=== PATIENT | female | born 1955 | race Caucasian/White ===

== ENCOUNTER 2020-10-18 14:34 | Emergency (ER) | payer SELFPAY ==
[2020-10-18] VITALS (52 sets, daily range): BP systolic 93–128; BP diastolic 34–85; PULSE 72–102; RESP 12–45; TEMP 37.1; O2SAT 90–100
--- NOTE | ~2020-10-18 | CT_ITS ---
EXAMINATION: CT abdomen pelvis w con DATE: 10/18/2020 18:04 INDICATION: Abdominal pain, bloating and leukocytosis TECHNIQUE: Computed tomography (CT) of the abdomen and pelvis was performed with 100 mL Omnipaque-350 intravenous contrast. Automated exposure control and iterative reconstruction technique were employe d. The dose-length product was 946.05 mGy-cm. COMPARISON: None FINDINGS: Mild discoid atelectasis/scarring at the lingula. Calcified nodule at the lingula along with a few sp lenic calcifications consistent with old granulomatous disease. Heart size is normal. No pericardial or pleural effusion. Cirrhotic liver with nodular surface contour. There is suggestion of a subtle 3. 3 cm at the caudal tip of the right hepatic lobe with similar but subtly more heterogeneous enhanceme nt of the adjacent liver. Cholecystectomy clips at the gallbladder fossa. There is [id number] amount of fluid scattered throughout the abdomen and pelvis which is of greater than simple fluid att enuation with the hypoattenuation near the caudal tip of the liver. In proximity to the previously no balta mass suggesting possibility of hemoperitoneum. There is irregular peripheral contour to the mass but no definitive active contrast extravasation. Pancreas, bilateral adrenal glands and left kidney a re normal. 9 mm right renal cyst. Small high density nodular focus near the tip of the cecum which co uld represent a diverticulum or small appendiceal stump. Mild diffuse fatty infiltration of the wall of the colon likely related to body habitus. No bowel obstruction. Uterus, partially decompressed jordon dder and bilateral adnexa are unremarkable. No jasmin peroneal gas. No pathologically enlarged abdomin al or pelvic lymphadenopathy. Severe spondylosis at the lumbosacral and thoracolumbar junction as wel l as in the visualized lower thoracic spine. Chronic appearing mild anterior wedging at L1. Bilateral L5 pars in particular is defects with 6 mm anterolisthesis on S1. Severe right and moderate left hip osteoarthritis. IMPRESSION: 1. Cirrhosis with small to moderate amount of relatively high attenuation ascites with density greate st along the liver suspicious for hemoperitoneum potentially related to extravasation from a 3.3 inde terminate mass at the periphery the caudal tip of the right hepatic lobe. Differential for the comple x ascites would include peritonitis. The liver lesion could be either benign or malignant and would r ecommend follow-up pre and postcontrast MRI for evaluation of the liver lesion when clinically approp riate. 2. Cirrhosis. Reviewed, dictated and finalized at location H. ITIES MANAGER IMPRESSION: 1. Cirrhosis with small to moderate amount of relatively high attenuation ascit es with density greatest along the liver suspicious for hemoperitoneum potentia lly related to extravasation from a 3.3 indeterminate mass at the periphery the caudal tip of the right hepatic lobe. Differential for the complex ascites wou ld include peritonitis. The liver lesion could be either benign or malignant an d would recommend follow-up pre and postcontrast MRI for evaluation of the live r lesion when clinically appropriate. 2. Cirrhosis.
--- NOTE | ~2020-10-18 | XR_ITS ---
EXAMINATION: XR chest 1V DATE: 10/18/2020 17:43 INDICATION: Cough and shortness of breath. Weakness. TECHNIQUE: frontal view of the chest was obtained. COMPARISON: None FINDINGS: Focal small opacity at the left costophrenic angle likely atelectasis/scarring at the lingula. Right lung is clear. No pulmonary edema, pleural effusion or pneumothorax. The cardiomediastinal silhouette is normal. Mild to moderate degenerative skeletal changes in the visualized spine and bilateral shou lders. IMPRESSION: 1. Mild lingular atelectasis/scarring. Reviewed, dictated and finalized at location H. US ADMINISTRATIVE ASSISTANT
[2020-10-18 16:01] LABS: Basophils Absolute Auto 0.1 K/mm3 (0.0-0.1); Basophils Percent Auto 0.2 % (0.2-1.2); Hematocrit 35.9 % (37.0-47.0); Immature Granulocyte Absolute 0.15 K/mm3 (0.00-0.031); Immature Granulocyte Percent A 0.7 % (0-0.5); Lymphocytes Absolute Auto 1.53 K/mm3 (0.9-3.2); Lymphocytes Percent Auto 7.2 % (18.3-44.2); Mean Corpuscular HGB Conc 33.4 g/dl (32-36); Mean Corpuscular Hemoglobin 31.3 pg (26-34); Mean Corpuscular Volume 93.5 fl (80-100); Mean Platelet Volume 11.6 fl (7.4-10.4); Monocytes Absolute Auto 0.8 K/mm3 (0.1-0.6); Monocytes Percent Auto 3.6 % (2.6-8.5); Neutrophils Absolute Auto 18.9 K/mm3 (1.3-6.7); Neutrophils Percent Auto 88.3 % (45.5-73.1); Platelet Count Result 205 k/mm3 (150-375); Red Blood Count 3.84 M/mm3 (4.2-5.4); Red Cell Distribution Width 13.4 % (11.5-14.5); White Blood Count 21.4 K/mm3 (4.5-10.0)
[2020-10-18 16:13] LABS: Alanine Aminotransferase 24 U/L (4-35); Albumin Level 3.8 g/dL (3.5-5.1); Alkaline Phosphatase 84 U/L (38-126); Anion Gap 9 mmol/L (8-16); Aspartate Amino Transferase 28 U/L (14-36); Bilirubin,Total 0.5 mg/dL (0.2-1.3); Blood Urea Nitrogen 17 mg/dL (7-17); Calcium 9.2 mg/dL (8.4-10.2); Carbon Dioxide 24 mmol/L (22-30); Chloride 102 mmol/L (98-107); Estimated CRCL calculation 57 ml/min; Estimated Glomerular Filt Rate > 60; Glucose 167 mg/dL (65-105); Lipase 79 U/L (23-300); Potassium 4.4 mmol/L (3.4-5.0); Sodium 135 mmol/L (137-145)
[2020-10-18 17:28] LABS: Add Urine Microscopic? YES; Appearance Urine Clear (Clear); Bacteria Urine Trace /hpf; Bilirubin Urine Negative (Negative); Blood Urine Negative (Negative); Color Urine Red (Yellow); Glucose Urine UA Negative (Negative); Ketones Urine Negative (Negative); Leukocyte Esterase Ur Negative LEU/UL (Negative); Mucus Urine Heavy /lpf; Nitrate Urine Positive (Negative); Protein Urine 3+ mg/dL (Negative); Specific Grav Ur 1.022 (1.001-1.035); Squamous Epithelial Cell Urine Many /hpf (Few); WBC Urine 0-3 /hpf
[2020-10-18] MEDS: SODIUM CHLORIDE 0.9% IV 1,000 ML 999 ML IV CONT (17:47)
[2020-10-18] MEDS: ONDANSETRON INJ 4 MG/2 ML VIAL IV PUSH (17:47)
--- NOTE | 2020-10-18 17:50 | PC.NURSE ---
martin valladares. have IVF at bedside. patient to CT. will start IVF when patient returns.
--- NOTE | 2020-10-18 18:09 | ED.GENADULT ---
HPI - General Adult General Chief complaint: Nausea/Vomiting/Diarrhea <Hope Hernandez PA-C - Last Filed: 10/18/20 21:36> Stated complaint: n/v/d, body aches <Hope Hernandez PA-C - Last Filed: 10/18/20 21:36> Time Seen by Provider: 10/18/20 16:46 <SOLA Mraquez Last Filed: 10/18/20 21:36> Source: patient <Hope Hernandez PA-C - Last Filed: 10/18/20 21:36> Mode of arrival: ambulatory <SOLA Marquez Last Filed: 10/18/20 21:36> Limitations: no limitations <Hope Hernandez PA-C - Last Filed: 10/18/20 21:36> History of Present Illness HPI narrative: Patient presents with chief complaint of nausea, body aches, 2 episodes of vomiting, and lower abdominal pain that began upon awakening this morning. Patient states that she felt the need to urinate but felt as if she cannot and so she took Azo and drink some cranberry juice and put on a diaper then she was able to urinate. Patient states that she has felt chills but has not documented a fever. Patient states she has a chronic cough due to COPD but she has not noticed any worsening cough or shortness of breath. Patient states that she does not have any known contact with a Covid positive person. Patient states at this time she no longer feels that she is retaining urine however she still has a lot of pressure to her lower abdomen with discomfort. <Hope Hernandez PA-C - Last Filed: 10/18/20 21:36> Related Data Allergies/adverse reactions: Allergies Allergy/AdvReac Type Severity Reaction Status Date / Time codeine Allergy Dyspnea / Verified 10/18/20 17:11 SOB <Hope Hernandez PA-C - Last Filed: 10/18/20 21:36> Review of Systems Review of Systems: Narrative: CONSTITUTIONAL: Reports chills denies feveror sweats. EYES: Denies visual changes, redness, or discharge. ENT: Reports dry throat denies rhinorrhea, congestion or otalgia. CARDIOVASCULAR: Denies chest pain, palpitations, or edema. RESPIRATORY: Denies acute cough or dyspnea. GASTROINTESTINAL: Reports abdominal pain, nausea, vomiting X2 GENITOURINARY: Reports dysuria SKIN: Denies rash or itching. MUSCULOSKELETAL: Denies back pain, joint pain, or myalgia. NEUROLOGIC: Denies headache, numbness, dizziness, or weakness. PSYCHIATRIC: Denies anxiety or depression. <Hope Hernandez PA-C - Last Filed: 10/18/20 21:36> [facility] Past Medical History Medical History: Medical History (Updated 10/19/20 @ 13:08 by Charli Varner DO) COPD (chronic obstructive pulmonary disease) <Hope Hernandez PA-C - Last Filed: 10/18/20 21:36> Exam Narrative: Exam Narrative: GENERAL: Well-appearing, well-nourished, and in no acute distress. HEAD: Normocephalic, atraumatic. EYES: PERRLA and EOMI. NECK: Supple. No adenopathy or masses. CHEST: Clear to auscultation. No respiratory distress. faint expiratory wheezes at bases, no rales or rhonchi HEART: Regular rate and rhythm. ABDOMEN: Soft, tender to lower abdomen, possible mild distention but difficult to tell with patient body habitus, normal active bowel sounds. EXTREMITIES: Normal range of motion. No edema. SKIN: Warm, dry, no rash. NEURO: No focal deficits. Alert and oriented x3. PSYCH: Normal mood and affect. <Hope Hernandez PA-C - Last Filed: 10/18/20 21:36> Course Course Emergency Course: Care turned over to myself at shift change by Dr. Mcdermott awaiting transfer to [facility]. Patient has had a hepatic mass with some questionable hemorrhage I will recheck hemoglobin at this time Hemoglobin rechecked which shows a drop I called [facility] and Saunemin checked and patient does have a bed at this time will transfer Still awaiting EMS transport was called and I discussed with surgery resident [facility] reviewed recheck a repeat hemoglobin Patient's repeat hemoglobin was called [facility] patient currently with EMS transporting the patient to [facility] at this time surgery will follo
--- NOTE | 2020-10-18 22:07 | PC.NURSE ---
accepted by [facility] at this time. .
[2020-10-19] VITALS (51 sets, daily range): BP systolic 92–113; BP diastolic 49–68; PULSE 71–83; RESP 14–26; TEMP 36.6; O2SAT 84–99
[2020-10-19] MEDS: SODIUM CHLORIDE 0.9% IV 1,000 ML 150 ML IV CONT (06:04)
--- NOTE | 2020-10-19 06:58 | PC.NURSE ---
i called [facility] to touch base about a bed. i was told that they have no beds at the moment and when a bed does come up they will call and let us know.
[2020-10-19 08:54] LABS: Basophils Absolute Auto 0.1 K/mm3 (0.0-0.1); Basophils Percent Auto 0.4 % (0.2-1.2); Eosinophils Percent Auto 0.1 % (0-4.4); Hematocrit 28.1 % (37.0-47.0); Hemoglobin 9.4 g/dL (12.0-15.0); Immature Granulocyte Absolute 0.05 K/mm3 (0.00-0.031); Immature Granulocyte Percent A 0.4 % (0-0.5); Lymphocytes Absolute Auto 2.86 K/mm3 (0.9-3.2); Lymphocytes Percent Auto 21.2 % (18.3-44.2); Mean Corpuscular HGB Conc 33.5 g/dl (32-36); Mean Corpuscular Hemoglobin 31.4 pg (26-34); Mean Platelet Volume 11.7 fl (7.4-10.4); Monocytes Absolute Auto 0.9 K/mm3 (0.1-0.6); Monocytes Percent Auto 6.8 % (2.6-8.5); Neutrophils Absolute Auto 9.6 K/mm3 (1.3-6.7); Neutrophils Percent Auto 71.1 % (45.5-73.1); Platelet Count Result 163 k/mm3 (150-375); Red Blood Count 2.99 M/mm3 (4.2-5.4); Red Cell Distribution Width 13.6 % (11.5-14.5); White Blood Count 13.5 K/mm3 (4.5-10.0)
--- NOTE | 2020-10-19 11:13 | PC.NURSE ---
received report from Radha FLORES. patient is waiting for EMS to transfer to [place]. no change in condition.
--- NOTE | 2020-10-19 12:35 | PC.NURSE ---
patient updated on EMS time. will be here now around 1pm. sitting in her room talking to her daughter. wants to smoke. aware of ED policy. refuses nicotine patch.
[2020-10-19 12:51] LABS: Hematocrit 26.2 % (37.0-47.0); Hemoglobin 8.7 g/dL (12.0-15.0)
--- NOTE | 2020-10-19 12:55 | PC.NURSE ---
[facility] here. patient released to their care for transfer to [place].
[2020-10-19 14:03] LABS: SARS-CoV-2 RNA PCR Negative
== END 2020-10-19 12:56 | disposition short-term general hospital (02) ==
PROVIDERS: Emergency Medicine; Physician Assistant; Emergency Provider Emergency Medicine
DX: K74.60 Unspecified cirrhosis of liver (principal); R16.0 Hepatomegaly, not elsewhere classified; K66.1 Hemoperitoneum; Z20.828 Contact with and (suspected) exposure to other viral communicable diseases; J44.9 Chronic obstructive pulmonary disease, unspecified
CPT/HCPCS: 36415; 71045; 74177; 80053; 81001; 83690; 85014; 85018; 85025; 86850; 86900; 86901; 87635; 87804; 96361; 96365; 96375; 99285; C9803; J0696; J2405; J7030; Q9967; U0003

== ENCOUNTER 2022-05-23 13:13 | Observation (INO) | payer OTHER, SELFPAY ==
[2022-05-23] VITALS (10 sets, daily range): BP systolic 125–168; BP diastolic 52–86; PULSE 80–98; RESP 16–20; TEMP 36.6–37.2; O2SAT 88–96
--- NOTE | ~2022-05-23 | XR_ITS ---
EXAMINATION: XR chest 1V portable Exam Date/Time: 05/23/2022 14:20 CDT HISTORY: cough, sore throat, fever x3 days, hx: copd Comparison: 10/18/2020. RESULT: Lines, tubes, and devices: None. Lungs and pleura: Right basilar scar/atelectasis, otherwise clear. Cardiomediastinal silhouette: Stable cardiomediastinal silhouette. Other: No acute osseous or upper abdominal finding. IMPRESSION: No acute cardiopulmonary process. Reviewed, dictated and finalized at location K.
[2022-05-23 15:23] LABS: SARS-CoV-2 RNA PCR Negative
[2022-05-23] MEDS: ALBUTEROL SULFATE NEB 2.5 MG/3 ML INH 5 MG INHALATION ×2 (15:43→16:47)
[2022-05-23] MEDS: IPRATROPIUM BR 0.02% INH SOLN 0.5 MG/2.5 ML VIAL INHALATION ×2 (15:43→16:47)
[2022-05-23 15:52] LABS: Basophils Absolute Auto 0.1 K/mm3 (0.0-0.1); Basophils Percent Auto 0.3 % (0.2-1.2); Hematocrit 43.6 % (37.0-47.0); Hemoglobin 14.2 g/dL (12.0-15.0); Immature Granulocyte Absolute 0.11 K/mm3 (0.00-0.031); Immature Granulocyte Percent A 0.7 % (0-0.5); Lymphocytes Percent Auto 8.9 % (18.3-44.2); Mean Corpuscular HGB Conc 32.6 g/dl (32-36); Mean Corpuscular Hemoglobin 30.4 pg (26-34); Mean Corpuscular Volume 93.4 fl (80-100); Mean Platelet Volume 11.2 fl (7.4-10.4); Monocytes Absolute Auto 1.2 K/mm3 (0.1-0.6); Monocytes Percent Auto 6.9 % (2.6-8.5); Neutrophils Percent Auto 83.2 % (45.5-73.1); Platelet Count Result 192 k/mm3 (150-375); Red Blood Count 4.67 M/mm3 (4.2-5.4); Red Cell Distribution Width 13.3 % (11.5-14.5); White Blood Count 16.8 K/mm3 (4.5-10.0)
[2022-05-23] MEDS: methylPREDNISolone SOD SUCC 125 MG VIAL IV PUSH (16:00)
[2022-05-23] MEDS: SODIUM CHLORIDE 0.9% IV 1,000 ML 999 ML IV CONT (16:00)
--- NOTE | 2022-05-23 16:01 | ED.GENADULT ---
HPI - General Adult General Chief complaint: Upper Respiratory Infection Stated complaint: COVID Test Request Time Seen by Provider: 05/23/22 14:19 Source: RN notes reviewed History of Present Illness HPI narrative: Patient presents emergency department from home for [place] infection. Patient states that symptoms again approximately 4 days ago. States she has had a cough this been productive of yellow sputum as well as rhinorrhea and subjective fevers she denies any chest pain abdominal pain nausea or vomiting. Patient states that she does have a history of tobacco use she states she was concerned that she had COVID-19 but has not had any recent exposure she denies taking medication for the symptoms at home Related Data Allergies Allergy/AdvReac Type Severity Reaction Status Date / Time codeine Allergy Dyspnea / Verified 10/18/20 17:11 SOB Review of Systems Review of Systems: Gen.: Reports subjective fever Eyes: Denies eye pain or visual change ENT: Reports nasal congestion Respiratory: Reports cough CV: Denies chest pain or palpitations GI: Denies abdominal pain nausea, emesis or diarrhea Musculoskeletal: Denies back pain or muscle pain Neuro: Denies numbness, tingling, weakness or focal weakness Skin: Denies rash Except as documented, all other systems reviewed and negative [facility] Past Medical History Medical History COPD (chronic obstructive pulmonary disease) Social History Social History (Updated 05/23/22 @ 16:02 by Charli Varner DO) Smoking status: Current every day smoker Exam Narrative: APPEARANCE: No acute distress, nontoxic, resting in bed EYES: EOMI HEENT: Normocephalic, atraumatic, TMs clear bilaterally nares patent oral mucosa dry mild erythema of posterior pharynx RESPIRATORY: No respiratory distress wheezing upper lung jhaveri worse with coughing no rhonchi CARDIOVASCULAR: Regular rate and rhythm without murmurs rubs or gallops. ABDOMINAL: Soft, nontender, nondistended, no rebound or guarding MUSCULOSKELETAl: Moves all extremities. No clubbing, cyanosis or edema. NEURO: Awake and alert. Following commands, speech normal, no focal deficits SKIN:: Warm, dry. No rashes lesions or abrasions PSYCHIATRIC: Normal affect/mood, Course Course Emergency Course: Following breathing treatments patient continued has wheezing throughout the bilateral lung jhaveri. Patient with walking pulse ox in the ED with desaturation down to 88% Discussed with BASS STRING WINDER Crystal for Dr. Arrington agrees with admission Discussed with patient and family results of workup and diagnosis. Discussed need for admission. Patient and family understand and agree to current treatment plan Vital Signs Vital signs: Vital Signs Temperature 99 F 05/23/22 13:28 Pulse Rate 93 05/23/22 13:28 Respiratory Rate 16 05/23/22 13:28 Blood Pressure 168/71 H 05/23/22 13:28 Pulse Oximetry 96 05/23/22 13:28 Oxygen Delivery Room Air 05/23/22 13:28 Temperature 99.0 F 05/23/22 13:40 Pulse Rate 89 05/23/22 16:56 Respiratory Rate 20 05/23/22 16:56 Blood Pressure 142/86 H 05/23/22 16:15 Pulse Oximetry 88 L 05/23/22 17:40 Oxygen Delivery Room Air 05/23/22 13:40 Medical Decision Making Vital Signs Vital Signs: Vital Signs Temperature 99 F 05/23/22 13:28 Pulse Rate 93 05/23/22 13:28 Respiratory Rate 16 05/23/22 13:28 Blood Pressure 168/71 H 05/23/22 13:28 Pulse Oximetry 96 05/23/22 13:28 Oxygen Delivery Room Air 05/23/22 13:28 Temperature 99.0 F 05/23/22 13:40 Pulse Rate 89 05/23/22 16:56 Respiratory Rate 20 05/23/22 16:56 Blood Pressure 142/86 H 05/23/22 16:15 Pulse Oximetry 88 L 05/23/22 17:40 Oxygen Delivery Room Air 05/23/22 13:40 Lab Data Result diagrams: 05/23/22 15:42 05/23/22 15:42 Labs: Lab Results 05/23/22 05/23/22 05/23/22 Range/Units 14:37 15:42 15:
[2022-05-23 16:06] LABS: Alanine Aminotransferase 19 U/L (6-35); Albumin Level 4.4 g/dL (3.5-5.1); Alkaline Phosphatase 118 U/L (38-126); Anion Gap 7 mmol/L (8-16); Aspartate Amino Transferase 24 U/L (14-36); Bilirubin,Total 1.3 mg/dL (0.2-1.3); Blood Urea Nitrogen 8 mg/dL (7-17); Calcium 9.3 mg/dL (8.4-10.2); Carbon Dioxide 27 mmol/L (22-30); Chloride 101 mmol/L (98-107); Estimated CRCL calculation 80 ml/min; Estimated Glomerular Filt Rate > 60; Glucose 142 mg/dL (65-110); Potassium 4.3 mmol/L (3.4-5.0); Sodium 135 mmol/L (137-145)
--- NOTE | 2022-05-23 20:48 | ADMGEN ---
This patient, Bella Alcantar, was admitted to [facility] Surg Room 329-01. Patient/family oriented to hospital policies and general routines including ID bracelet, bed and alarms, visiting hours, pain management, procedures, bathroom and other care routines, personal items, smoking policy, room service/diet, and visiting hours. Information on how to activate the Rapid Response Team has been discussed. Patient/Family are encouraged to report perceived risks to care and to ask questions if they do not understand what they are told or what they should do.
--- NOTE | 2022-05-23 21:58 | PC.NURSE ---
Pt denies taking any home medications at this time.
[2022-05-24] VITALS (9 sets, daily range): BP systolic 126–138; BP diastolic 62–77; PULSE 79–88; RESP 16–24; TEMP 36.5–36.8; O2SAT 91–96
[2022-05-24] MEDS: methylPREDNISolone SOD SUCC 125 MG VIAL 60 MG IV PUSH ×2 (00:05→05:24)
--- NOTE | 2022-05-24 00:58 | PM.IMHP ---
H&P: HPI History of Present Illness Date/Time: 05/23/22 23:30 Chief Complaint: Weakness, concerned she may have COVID Narrative: 67-year-old female with a past medical history of COPD with can continuous tobacco abuse who presented to the ER from home via private vehicle due to weakness and generally feeling ill. She reported that for the last 2 days she has had dry nonproductive cough. She reports that food tastes good but then after she eats a biter to she can no longer eat anything else. She seems to be having some symptoms of nausea but denies any vomiting. She reports that she has been unable to sleep for the last 3 nights due to cough. She reports feeling sinus pressure and fullness in fullness in her ears. She reports feeling some tenderness in her throat but reports that the symptoms have improved since she received antibiotics and nebs in the ER. She denies any rhinorrhea or dysphagia or odynophagia. She denies any known ill contacts. COVID vaccine but has not received her boosters. Her COVID PCR was negative in the ER. Her flu screen in the ER was negative. She reports that she always wears a mask and has not been outside the home. 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 She denies any orthopnea but seems like she may be having some paroxysmal nocturnal dyspnea. The patient is noted to be wheezing significantly on a.m. but patient denies any noticeable wheezing herself. Has chronic stress urinary incontinence which is been worse due to coughing. She reports that she feels as if she is dehydrated. She has been trying to drink fluids even though she does not want to eat. She denies any chest pain. She reports that her chest feels tight but this has improved since receiving nebs in the ER. She does not have any inhalers at home. She has not received any recent steroid therapy. She has not tried any aact-mqe-dodvbgl medications. In the ER the patient received IV Solu-Medrol, albuterol and Atrovent as well as azithromycin. She was ambulated in the ER and desatted down to 88% with activity. She has no desire to quit smoking but has cut down to 0.5 packs of cigarettes per day over the last couple of months but reports that since she was stressed about not being able asleep she has actually been smoking more over the last couple of days. Review of Systems Review of Systems: 12 systems were reviewed with pertinent positives and negatives per HPI. Except as documented in the HPI, all other systems were reviewed and are negative. [facility] Past Medical History Medical History (Updated 05/24/22 @ 01:18 by aDya Reynolds DO) Alcoholism in recovery Quit drinking at age 41 Cirrhosis of liver (10/2020) Continuous tobacco abuse COPD (chronic obstructive pulmonary disease) Liver mass, right lobe (10/2020) With hemoperitoneum transferred to [place] Surgical History Surgical History History of tubal ligation Hx of cholecystectomy Family History Family History Mother Uterine cancer, Onset Age: 52 Father Acute myocardial infarction, Onset Age: 65 Social History Social History (Updated 05/24/22 @ 01:17 by Daya Reynolds DO) Social History: She is and lives in her own home. She lives across the street from her only daughter who provides her meals daily. She is retired from [employer]. She has smoked at least packs of cigarettes per day until recently when she cut down to half a pack of cigarettes per day. She is a recovering alcoholic. She used to drink heavily for approximately 20 years but quit drinking at age 41. She experimented with drugs for a couple of years as a teenager. She denies any current illicit substance use. Code status: Full code Surrogate decision maker: Gracie Bonilla
[2022-05-24 07:18] LABS: Basophils Percent Auto 0.1 % (0.2-1.2); Hematocrit 41.8 % (37.0-47.0); Immature Granulocyte Absolute 0.06 K/mm3 (0.00-0.031); Immature Granulocyte Percent A 0.6 % (0-0.5); Lymphocytes Percent Auto 6.1 % (18.3-44.2); Mean Corpuscular HGB Conc 33.5 g/dl (32-36); Mean Corpuscular Hemoglobin 30.8 pg (26-34); Mean Corpuscular Volume 91.9 fl (80-100); Mean Platelet Volume 11.7 fl (7.4-10.4); Monocytes Absolute Auto 0.1 K/mm3 (0.1-0.6); Monocytes Percent Auto 0.9 % (2.6-8.5); Neutrophils Absolute Auto 9.1 K/mm3 (1.3-6.7); Neutrophils Percent Auto 92.3 % (45.5-73.1); Platelet Count Result 180 k/mm3 (150-375); Red Blood Count 4.55 M/mm3 (4.2-5.4); Red Cell Distribution Width 13.1 % (11.5-14.5); White Blood Count 9.9 K/mm3 (4.5-10.0)
[2022-05-24 07:38] LABS: Alanine Aminotransferase 18 U/L (6-35); Albumin Level 4.3 g/dL (3.5-5.1); Alkaline Phosphatase 111 U/L (38-126); Anion Gap 8 mmol/L (8-16); Aspartate Amino Transferase 23 U/L (14-36); Bilirubin,Total 0.7 mg/dL (0.2-1.3); Blood Urea Nitrogen 9 mg/dL (7-17); Calcium 9.3 mg/dL (8.4-10.2); Carbon Dioxide 24 mmol/L (22-30); Chloride 108 mmol/L (98-107); Estimated CRCL calculation 95 ml/min; Estimated Glomerular Filt Rate > 60; Glucose 185 mg/dL (65-110); Potassium 3.9 mmol/L (3.4-5.0); Sodium 140 mmol/L (137-145)
[2022-05-24] MEDS: IPRATROPIUM BR 0.02% INH SOLN 0.5 MG/2.5 ML VIAL INHALATION (08:00)
[2022-05-24] MEDS: ALBUTEROL SULFATE NEB 2.5 MG/3 ML INH 5 MG INHALATION (08:00)
--- NOTE | 2022-05-24 11:29 | PM.CNPUL ---
Assessment and Plan Assessment and plan (1) COPD exacerbation: Code(s): J44.1 - Chronic obstructive pulmonary disease with (acute) exacerbation Status: Acute Assessment and Plan: Patient with a 25 pack year history of tobacco use, currently smoking, she carries a diagnosis of COPD since age 26 and has an albuterol allergy. She is able to take Xopenex and her last use of Xopenex for an exacerbation was 2-3 years ago. Currently the patient has increased shortness of breath, increased cough with minimal phlegm production and wheezing. Believe she has an acute exacerbation of her COPD. The patient's serum bicarb is 27 and 24 so I do not think there is evidence of chronic hypercarbic respiratory failure. The patient's room air saturations are now 94%. Overall the patient has improved but she continues to have end expiratory wheezes. The patient received Solu-Medrol 125 at 3:30 p.m. yesterday, 60 mg at midnight and 30 mg at 6:00 a.m.. The patient has severe anxiety and a steroid psychosis and at this time I will discontinue the steroids and I will re-evaluate her on 05/25/2022. The patient received 500 mg of IV azithromycin on 05/23 and she says she can't tolerate azithromycin and I will start 250 mg p.o. q.day for another 4 days. I will be treating a tracheobronchitis and COPD exacerbation. The patient tells me she has an allergy to albuterol and I have listed this allergy on her profile. she does not know if she has any reaction to ipratropium. She has recieved nebulized ipratropium x3 doses in the hospital. at this time I will discontinue ipratropium. Patient tells me she can tolerate Xopenex and I will start Xopenex 0.63 mg nebulized q.6 hours at this point. Will follow with you. (2) Continuous tobacco abuse: Code(s): Z72.0 - Tobacco use Status: Acute Assessment and Plan: Patient is currently smoking half pack of day. She is very emotional at this time and I have not given her any tobacco cessation counseling today. History of Present Illness History of Present Illness Consult date: 05/24/22 Chief complaint: AE COPD, acute respiratory failure w/hypoxia Narrative: 05/24/2022: This is a new pulmonary consult for COPD exacerbation. 67-year-old woman with a history of tobacco use and COPD since age 26, history of alcohol use with cirrhosis presented to the emergency department on 05/23/2022 with 7 days history of worsening shortness of breath, subjective fevers, dry cough and low oxygen saturations. Patient worsened over the last 2 days and presented to the emergency department. In the emergency department her were room air saturations were 96%, she had diffuse expiratory wheezes bilaterally on exam and a chest x-ray with no active disease. Her white blood cell count was 16.8 with 0.0% eosinophils. Her COVID RT PCR test was negative. Her influenza swab was negative. The patient was treated for COPD exacerbation with Solu-Medrol, ipratropium, albuterol and azithromycin. patient has a tobacco history of half a pack a day from age 17 to current for 25 pack year history. Patient denies secondhand smoke exposure. Patient has really smoked marijuana and her last use was 6 months ago. Patient denies other illicit drug use. 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 Patient worked in the [employer]. Patient tells me she was diagnosed with COPD at age 26 and at that time they did PFTs and she describes to me they gave her an albuterol nebulizer and this caused her lungs to hurt. She has been listed as having an albuterol allergy since then. She has been on no medications previously. When she does have shortness of breath she calls her prior doctor who gives her Xopenex and this helps her. She has not taken any medicine for the last 2-3 years. She has no at no exacerbations in the last 2-3 years. At baseline sai
--- NOTE | 2022-05-24 14:30 | PM.IMPN ---
Progress Note: A&P Assessment and Plan (1) COPD exacerbation: Code(s): J44.1 - Chronic obstructive pulmonary disease with (acute) exacerbation Status: Acute Assessment and Plan: Will continue scheduled albuterol and Atrovent nebulizers. Will continue his Solu-Medrol 60 mg q.6 hours. Azithromycin has been added due to leukocytosis but no evidence of pneumonia. 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 (2) Acute respiratory failure with hypoxia: Code(s): J96.01 - Acute respiratory failure with hypoxia Status: Acute Assessment and Plan: Patient has mild hypoxia with ambulation. Patient is not requiring oxygen at rest. Will need ambulatory pulse oximetry prior to discharge. (3) Continuous tobacco abuse: Code(s): Z72.0 - Tobacco use Status: Acute Assessment and Plan: 10 minutes was spent in tobacco cessation education. The patient is not rate to quit smoking but is making efforts to cut down her tobacco use and is no longer smoking in her car. Her next step is to not smoke in her home. She refuses a nicotine patch. Plan Patient has been admitted as observation status. Subjective Date/time seen: 05/24/22 14:30 HPI: 67-year-old female with a past medical history of COPD with can continuous tobacco abuse who presented to the ER from home via private vehicle due to weakness and generally feeling ill.? She reported that for the last 2 days she has had dry nonproductive cough.? She reports that food tastes good but then after she eats a biter to she can no longer eat anything else.? She seems to be having some symptoms of nausea but denies any vomiting.? She reports that she has been unable to sleep for the last 3 nights due to cough.? She reports feeling sinus pressure and fullness in fullness in her ears.? She reports feeling some tenderness in her throat but reports that the symptoms have improved since she received antibiotics and nebs in the ER.? She denies any rhinorrhea or dysphagia or odynophagia.? She denies any known ill contacts. COVID vaccine but has not received her boosters.? Her COVID PCR was negative in the ER.? Her flu screen in the ER was negative.? She reports that she always wears a mask and has not been outside the home.? She reports that she has been so weak that she cannot walk across the street to her daughter's house to pick up worker dinner.? She denies any orthopnea but seems like she may be having some paroxysmal nocturnal dyspnea.? The patient is noted to be wheezing significantly on a.m. but patient denies any noticeable wheezing herself.? Has chronic stress urinary incontinence which is been worse due to coughing.? She reports that she feels as if she is dehydrated.? She has been trying to drink fluids even though she does not want to eat.? She denies any chest pain.? She reports that her chest feels tight but this has improved since receiving nebs in the ER.? She does not have any inhalers at home.? She has not received any recent steroid therapy.? She has not tried any [id number] medications.? In the ER the patient received IV Solu-Medrol, albuterol and Atrovent as well as azithromycin.? She was ambulated in the ER and desatted down to 88% with activity. She has no desire to quit smoking but has cut down to 0.5 packs of cigarettes per day over the last couple of months but reports that since she was stressed about not being able asleep she has actually been smoking more over the last couple of days.
--- NOTE | 2022-05-24 14:45 | PC.NURSE ---
Around 0755 Patient removed her IV, catheter found intact on bedside table. Patient is ready to go home and refuses steroids and albuterol inhalers/nebs. Patient and RN had one-on-one communication/education about standard treatment in regards to pt's current condition. RN contacted Dr. Eugene about patient's condition and refusals. Dr. Eugene and RN had a group conversation with pt discussing treatment options, care plans, and discharge status. Dr. Eugene does not feel comfortable discharging patient today. Patient was given the option of AMA but refused AMA and still refusing treatment. Medr Director and RN had a group discussion with patient to explore options for patient's safety and care plans. Patient continues to refuse treatment and other options. Dr. Eugene was contacted to explore other treatment options. Dr. Eugene ordered for consult to project controls scheduler, Dr. Tse. Dr. Tse was contacted and plans to visit the patient around 1100. RN went into pt's room to provide an update about consulting a specialist to explore additional options. Patient started to become angry and verbally aggressive towards RN, while on the phone with her granddaughter, Kavya. Pt told RN to speak to her granddaughter about current situation. Granddaughter stated I will try to talk to her and have her listen to the specialist . RN gave the patient space to talk to family members.
[2022-05-24] MEDS: LEVALBUTEROL NEB 1.25 MG/3 ML 0.63 MG INHALATION ×2 (15:10→20:20)
[2022-05-24] MEDS: AZITHROMYCIN 250 MG TABLET PO (17:23)
[2022-05-25 06:00] VITALS: BP 150/72; PULSE 73; RESP 18; TEMP 36.7; O2SAT 96
[2022-05-25 08:00] VITALS: O2SAT 96
[2022-05-25] MEDS: LEVALBUTEROL NEB 1.25 MG/3 ML 0.63 MG INHALATION (08:19)
[2022-05-25 08:21] VITALS: PULSE 66; RESP 20; O2SAT 97
[2022-05-25 08:35] VITALS: PULSE 67; RESP 20
[2022-05-25] MEDS: predniSONE 20 MG TABLET 40 MG PO (11:07)
--- NOTE | 2022-05-25 11:07 | PM.PNPUL ---
Progress Note: A&P Assessment and Plan (1) COPD exacerbation: Code(s): J44.1 - Chronic obstructive pulmonary disease with (acute) exacerbation Status: Acute Assessment and Plan: Patient with a 25 pack year history of tobacco use, currently smoking, she carries a diagnosis of COPD since age 26 and has an albuterol allergy. She is able to take Xopenex and her last use of Xopenex for an exacerbation was 2-3 years ago. Currently the patient has increased shortness of breath, increased cough with minimal phlegm production and wheezing. Believe she has an acute exacerbation of her COPD. The patient's serum bicarb is 27 and 24 so I do not think there is evidence of chronic hypercarbic respiratory failure. The patient's room air saturations are now 94%. Overall the patient has improved but she continues to have end expiratory wheezes. The patient received Solu-Medrol 125 at 3:30 p.m. yesterday, 60 mg at midnight and 30 mg at 6:00 a.m.. The patient has severe anxiety and a steroid psychosis and at this time I will discontinue the steroids and I will re-evaluate her on 05/25/2022. The patient received 500 mg of IV azithromycin on 05/23 and she says she can't tolerate azithromycin and I will start 250 mg p.o. q.day for another 4 days. I will be treating a tracheobronchitis and COPD exacerbation. The patient tells me she has an allergy to albuterol and I have listed this allergy on her profile. she does not know if she has any reaction to ipratropium. She has recieved nebulized ipratropium x3 doses in the hospital. at this time I will discontinue ipratropium. Patient tells me she can tolerate Xopenex and I will start Xopenex 0.63 mg nebulized q.6 hours at this point. 05/25 patient is doing better today. Her bilateral back pain is resolved. She still has a cough but this is better she has no wheezes on exam. She feels she is stable for discharge home. she is scheduled to receive prednisone 40 mg p.o. this morning and if she tolerates this she will be ready for discharge From a pulmonary perspective patient is ready to be discharged on these pulmonary medicines Prednisone 40 mg PO X 2 days Azithromycin 250 mg PO X 3 days Xopenex inhaler at 2 puffs Q 6 hours PRN SOB or wheezing patient to follow up in the Pulmonary Clinic in 3-4 weeks. I gave her our business card and informed our flight crew scheduler. Discussed with Dr. Eugene, will sing off, call with questions. (2) Continuous tobacco abuse: Code(s): Z72.0 - Tobacco use Status: Acute Assessment and Plan: Patient is currently smoking half pack of day. She is very emotional at this time and I have not given her any tobacco cessation counseling today. Subjective Date/time seen: 05/25/22 11:07 Interval history: 05/24/2022: This is a new pulmonary consult for COPD exacerbation. ? 67-year-old woman with a history of tobacco use and COPD since age 26, history of alcohol use with cirrhosis presented to the emergency department on 05/23/2022 with 7 days history of worsening shortness of breath, subjective fevers, dry cough and low oxygen saturations.? Patient worsened over the last 2 days and presented to the emergency department.? In the emergency department her were room air saturations were? 96%, she had diffuse expiratory wheezes bilaterally on exam and a chest x-ray with no active disease.? Her white blood cell count was 16.8 with 0.0% eosinophils.? ? Her COVID RT PCR test was negative.? Her influenza swab was negative. The patient was treated for COPD exacerbation with Solu-Medrol, ipratropium, albuterol and azithromycin. ?patient has a tobacco history of half a pack a day from age 17 to current for 25 pack year history.? Patient denies secondhand smoke exposure.? Patient has really smoked marijuana and her last use was 6 months ago.? Patient denies other illicit drug use.? Patient denies stand blasting, welding, asbestos were, professional paintin
--- NOTE | 2022-05-25 11:55 | PM.DS ---
DS: Admitting Diagnosis Discharge Date 05/25/2022 Admitting Diagnosis Weakness, concerned she may have COVID DS: Discharge Diagnosis Discharge Diagnosis (1) COPD exacerbation: Code(s): J44.1 - Chronic obstructive pulmonary disease with (acute) exacerbation Status: Acute Assessment and Plan: Will continue scheduled albuterol and Atrovent nebulizers. Will continue his Solu-Medrol 60 mg q.6 hours. Azithromycin has been added due to leukocytosis but no evidence of pneumonia. 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 (2) Acute respiratory failure with hypoxia: Code(s): J96.01 - Acute respiratory failure with hypoxia Status: Acute Assessment and Plan: Patient has mild hypoxia with ambulation. Patient is not requiring oxygen at rest. Will need ambulatory pulse oximetry prior to discharge. (3) Continuous tobacco abuse: Code(s): Z72.0 - Tobacco use Status: Acute Assessment and Plan: 10 minutes was spent in tobacco cessation education. The patient is not rate to quit smoking but is making efforts to cut down her tobacco use and is no longer smoking in her car. Her next step is to not smoke in her home. She refuses a nicotine patch. Plan Patient has been admitted as observation status. DS: Summary Hospital Course Reason for hospitalization: Chief Complaint: Weakness, concerned she may have COVID Narrative: 67-year-old female with a past medical history of COPD with can continuous tobacco abuse who presented to the ER from home via private vehicle due to weakness and generally feeling ill.? She reported that for the last 2 days she has had dry nonproductive cough.? She reports that food tastes good but then after she eats a biter to she can no longer eat anything else.? She seems to be having some symptoms of nausea but denies any vomiting.? She reports that she has been unable to sleep for the last 3 nights due to cough.? She reports feeling sinus pressure and fullness in fullness in her ears.? She reports feeling some tenderness in her throat but reports that the symptoms have improved since she received antibiotics and nebs in the ER.? She denies any rhinorrhea or dysphagia or odynophagia.? She denies any known ill contacts. COVID vaccine but has not received her boosters.? Her COVID PCR was negative in the ER.? Her flu screen in the ER was negative.? She reports that she always wears a mask and has not been outside the home.? She reports that she has been so weak that she cannot walk across the street to her daughter's house to hand picker dinner.? She denies any orthopnea but seems like she may be having some paroxysmal nocturnal dyspnea.? The patient is noted to be wheezing significantly on a.m. but patient denies any noticeable wheezing herself.? Has chronic stress urinary incontinence which is been worse due to coughing.? She reports that she feels as if she is dehydrated.? She has been trying to drink fluids even though she does not want to eat.? She denies any chest pain.? She reports that her chest feels tight but this has improved since receiving nebs in the ER.? She does not have any inhalers at home.? She has not received any recent steroid therapy.? She has not tried any [id number] medications.? In the ER the patient received IV Solu-Medrol, albuterol and Atrovent as well as azithromycin.? She was ambulated in the ER and desatted down to 88% with activity. She has no desire to quit smoking but has cut down to 0.5
[2022-05-25 12:40] VITALS: BP 138/80; PULSE 68; RESP 18; TEMP 36.2; O2SAT 97
== END 2022-05-25 12:45 | disposition home or self-care (01) ==
LOC: ANHED 19:03 → ANH3MEDSUR 21:03
PROVIDERS: Nurse Practitioner Family; Admitting Provider Student in an Organized Health Care Education/Training Program; Emergency Provider Emergency Medicine; Visit Provider Family Medicine
DX: J44.1 Chronic obstructive pulmonary disease with (acute) exacerbation (principal); J96.01 Acute respiratory failure with hypoxia; R53.1 Weakness; F17.210 Nicotine dependence, cigarettes, uncomplicated; F10.21 Alcohol dependence, in remission; K70.30 Alcoholic cirrhosis of liver without ascites; Z20.822 Contact with and (suspected) exposure to COVID-19
CPT/HCPCS: 36415; 71045; 80053; 85025; 87804; 94640; 96361; 96374; 96375; 96376; 99285; A9270; C9803; G0378; J0456; J2930; J7030; J7512; U0003; U0005

== ENCOUNTER 2023-12-10 13:30 | Outpatient (CLI) | payer OTHER, SELFPAY ==
--- NOTE | ~2023-12-10 | PE_ITS ---
EXAMINATION: PET skull to mid thigh DATE: 12/10/2023 16:12 INDICATION: Lung mass. TECHNIQUE: Blood glucose level was 96 mg/dL. 10.949 mCi of 18-fluorodeoxyglucose (18-FDG) was adminis tered i.v. Low dose computed tomography (CT) images were acquired from the base of the brain to the p roximal thighs for attenuation correction and anatomic localization. Automated exposure control was e mployed. Dose-length product (DLP) was 742 mGy-cm. Positron emission tomography (PET) images were acq uired in the same distribution. COMPARISON: CT abdomen and pelvis 10/18/2020 FINDINGS: Head/neck: There are no pathologically enlarged lymph nodes. Chest: There is mild emphysema. There is an 11 mm nodule in right lung lower lobe with maximum SUV of 4.7. There is a groundglass opacity in left upper lobe. There is mild atelectasis bilaterally. No pl eural effusion. The heart size is normal. There are coronary artery calcifications. No pericardial ef fusion. Abdomen/pelvis/proximal thighs: The liver demonstrates a nodular surface contour, consistent with cir rhosis. Calcifications in the liver and spleen are consistent with old granulomatous disease. There i s mild splenomegaly. There are changes of cholecystectomy. The pancreas, adrenal glands, and left kid gita are normal. There is a 7 mm cyst in right kidney. There are no dilated loops of bowel. There is a small volume of ascites. There is severe osteoarthritis of the hips. There is severe lumbar spondylo sis. There are chronic bilateral L5 pars defects with 7 mm anterolisthesis of L5 on S1. IMPRESSION: 1. 11 mm nodule in right lung lower lobe with increased activity, consistent with primary bronchogeni c carcinoma. CT-guided biopsy is recommended. 2. Cirrhosis of the liver with portal venous hypertension. 3. Small volume of ascites. Reviewed, dictated and finalized at location A. ATOR TECHNICIAN IMPRESSION: 1. 11 mm nodule in right lung lower lobe with increased activity, consistent wi th primary bronchogenic carcinoma. CT-guided biopsy is recommended. 2. Cirrhosis of the liver with portal venous hypertension. 3. Small volume of ascites.
[2023-12-10 13:59] LABS: Glucose Point of Care 96 mg/dl (65-105)
== END 2023-12-10 13:31 | disposition home or self-care (01) ==
DX: R91.1 Solitary pulmonary nodule (principal); K74.60 Unspecified cirrhosis of liver; K76.6 Portal hypertension; R18.8 Other ascites
CPT/HCPCS: 78815; A9552